=== PATIENT | male | born 1995 | race Caucasian/White ===

== ENCOUNTER → 2022-01-30 09:41 | Outpatient (CLI) | payer OTHER, SELFPAY ==
--- NOTE | ~2022-01-30 | CT_ITS ---
EXAMINATION: CT abdomen pelvis wo con EXAM DATE: 01/30/2022 10:01 INDICATION: Undescended testicle; unconfirmed . TECHNIQUE: Spiral CT of the abdomen and pelvis was performed without contrast. Axial, coronal and s agittal images of the abdomen and pelvis were reviewed. The dose-length product (DLP) for this exami nation was 712.87 mGy-cm. The exposure was tailored according to patient size (auto mA exposure cont rol), and iterative reconstruction (ASIR) was used as additional dose reduction technique. There is no prior study for comparison. FINDINGS: Scrotum was imaged. There is round left scrotal region with heterogeneous density and some peripheral calcifications measuring about 10 cm in diameter. The density inside could be scattered fo ci of soft tissue consistent with malignancy, or possibly hemorrhage within a complicated hydrocele. No morphologically normal testicle is identified which does further increase concern for malignancy. No inguinal canal soft tissue/undescended testicle identified on either side. No retroperitoneal lymp hadenopathy. The liver, spleen, adrenal glands and pancreas are unremarkable. Gallbladder is unremarkable. No bi liary obstruction. There is no nephrolithiasis or hydronephrosis. The prostate is unremarkable. T he bladder is unremarkable. There is no retroperitoneal or pelvic lymphadenopathy. There are no findings to suggest appendicitis. The stomach and small bowel are unremarkable. There is expected amount of colonic stool. No free intraperitoneal gas. The heart is normal in size. T here are no pericardial or pleural effusions. The lung bases are unremarkable. There are no osteobl astic or osteolytic lesions identified. IMPRESSION: Left scrotal enlargement, differential diagnosis including testicular malignancy and/or c omplicated hydrocele. No retroperitoneal lymphadenopathy. Correlate clinically and with ultrasound. Reviewed, dictated and finalized at location B. IMPRESSION: Left scrotal enlargement, differential diagnosis including testicul ar malignancy and/or complicated hydrocele. No retroperitoneal lymphadenopathy . Correlate clinically and with ultrasound.
== END ==
PROVIDERS: Visit Provider Urology
DX: Q53.9 Undescended testicle, unspecified (principal)
CPT/HCPCS: 74176

== ENCOUNTER 2022-02-07 11:23 | Outpatient (CLI) | payer OTHER, SELFPAY ==
[2022-02-07 12:16] LABS: Lactate Dehydrogenase 404 U/L (313-618)
[2022-02-10 15:07] LABS: HCG Tumor Marker <3 mIU/mL (<5)
[2022-02-11 16:48] LABS: Alpha Fetoprotein Tumor Marker 3.1 ng/mL (<6.1)
== END 2022-02-07 11:24 | disposition home or self-care (01) ==
LOC: ANHLAB 11:28
PROVIDERS: Visit Provider Urology
DX: Q53.9 Undescended testicle, unspecified (principal)
CPT/HCPCS: 36415; 82105; 83615; 84702

== ENCOUNTER 2022-02-24 00:06 | Day surgery (SDC) | payer OTHER, SELFPAY ==
[2022-02-20 13:39] VITALS: BMI 21.5
--- NOTE | 2022-02-20 13:47 | PC.NURSE ---
Report to the Outpatient Waiting Room, entrance under the green pavilion located off [facility], at time __1200 on date __02/24/22 . OR Time: ____2 PM____. - You and your visitor will be asked a series of questions to screen for COVID 19 for your protection. - Only one visitor is allowed at this time. - The patient visitor is requested to leave or wait in car when not with patient. - A mask is required within the hospital. Patients may have clear liquids (water, carbonated beverages, clear teas, apple juice) until 3 hours prior to surgery (1100 AM) with a maximum of 20 ounces. - No food from midnight until time of surgery - Infants may have breast milk until 4 hours before surgery, infant formula 6 hours prior to surgery. - Children will be allowed to drink immediately following surgery. If applicable, please bring a bottle or sippy cup to assist with drinking. Juice, water, soda, and popsicles are readily available. For infants on formula, please bring formula the day of surgery. Pacifiers are allowed. Take the following medications with a SIP of water the morning of surgery: N/A Medications to discontinue per physician N/A Date to take last dose Please no make-up, nail croatian, hairspray, perfume, deodorant, or body powder the day of surgery. No jewelry (including any body piercings) or valuables the day of surgery, leave them at home. Please take a shower or bath the night before, or the morning of, surgery with an antibacterial soap. Wear comfortable, loose fitting clothing. Children are encouraged to wear pajamas. - Jewelry must be removed prior to entering the operating room. Rings and piercings that are not removed may be cut off. - The hospital will not accept responsibility for valuables. - Please leave all valuables, including medications, at home the day of surgery. If you are going home after surgery, a licensed team cdl driver must drive you home. - NO public transportation without another adult. - We recommend that an adult stay with you for 24 hours following discharge. - We also recommend that you do not drive, make important decision, drink alcoholic beverages, or take any drugs that were not prescribed by your health care provider for at least 24 hours after your discharge time. For Pediatric surgeries, we recommend two adults accompany the child home (only one inside the building at this time). Follow any additional instructions given to you from your surgeon. If you or anyone in your household have experienced Covid symptoms in the past week, please notify your surgeon or the nurse liaison at the phone number below for possible testing. Telephone instructions given to ___PT and asked if any additional questions and then verbalized understanding. Patient advised to call surgeon office or pre surgery nurse liaison [phone] if any additional questions.
[2022-02-24] VITALS (8 sets, daily range): BP systolic 117–140; BP diastolic 50–99; PULSE 48–80; RESP 12–20; TEMP 36.3–37.4; O2SAT 99–100
--- NOTE | 2022-02-24 12:22 | WPDHPUPDATE1 ---
History and Physical Update Update Date/Time: 02/24/22 12:22 History and Physical has been reviewed, including an updated exam of the patient. There are NO changes in the patient's condition. Risks, benefits, and alternatives have been discussed and questions answered. Patient agrees to proceed with procedure. Proceed with left scrotal exploration with left hydrocelectomy possible left orchiectomy
[2022-02-24] MEDS: LACTATED RINGERS 1,000 ML 30 ML IV CONT (12:23)
--- NOTE | 2022-02-24 12:54 | P.PNAN_ITS ---
Anes - Initial Pre Proc Eval Procedure: Operation Date: 02/24/22 14:00 Proposed Procedures p Left Hydrocelectomy, Scrotal Exploration, - Cedrick Lanza MD s Possible Left Orchiectomy - Cedrick Lanza MD Date/Time: 02/24/22 12:54 Surgeon: Cedrick Lanza MD Pre Op Diagnosis: left hydrocele Patient Data Age: 26 Gender: M Height: 1.78 m Weight: 67 kg Last Vital Signs Temp 37.4 C 02/24/22 12:07 Pulse 48 L 02/24/22 12:07 Resp 16 02/24/22 12:07 BP 119/50 L 02/24/22 12:07 Pulse Ox 99 02/24/22 12:07 Allergies Allergy/AdvReac Type Severity Reaction Status Date / Time No Known Allergies Allergy Verified 02/24/22 11:58 Home Medications Medication Instructions Recorded Confirmed Type No Home Medications 02/20/22 02/24/22 History Patient hx anesthesia problems: none Family hx anesthesia problems: none Results Review: All pre-operative results and documents have been reviewed as part of the pre-operative evaluation. FOR[facility] Past Medical History Medical History (Updated 02/24/22 @ 12:57 by Js Mendez MD) Marijuana abuse Social History Social History Smoking status: Never smoker Alcohol intake: current Alcohol use details: STATES 1-2/MONTH Substance use: current Substance use type: marijuana Other substance usage details: DAILY Spiritual care concerns: No Anes - Eval Final PreProcedure Day of Procedure 02/24/22 12:54 Patient weight: normal Lungs: clear to auscultation Airway: Mallampati scale class II Neurological: alert and oriented Last oral intake: >/= 8 hours ASA classification: II Emergent: no Anesthetic plan: proceed Anesthesia type and monitoring: general LMA and standard monitoring Results Review: All pre-operative results and documents have been reviewed as part of the pre-operative evaluation. Informed Consent: The patient's anesthetic plan and its attendant risks and benefits were discussed with the patient/family/POA. Questions were solicited and answers provided to the satisfaction of the patient/family/POA.
[2022-02-24] MEDS: ceFAZolin 2 GM/D5W 50 ML 2 GM/50 ML BAG IVPB (13:46)
[2022-02-24] MEDS: BUPIVACAINE HCL 0.25% PF 30 ML VIAL INFILTRATE (15:02)
[2022-02-24] MEDS: NEOMYCIN/POLYMYXIN/BACITRACIN OINTMENT 15 GM TUBE 1 APPLIC TOPICAL (15:09)
--- NOTE | 2022-02-24 15:20 | P.OP_ITS ---
Procedure Note - Detailed Date of Procedure 02/24/22 Pre-op Diagnosis left hydrocele Post-op Diagnosis Same (Severely indurated left hydrocele sac with hematoma that appeared like hamburger filling the entire hydrocele sac) Procedure Performed Scrotal exploration with left orchiectomy Surgeon Cedrick Lanza MD Anesthesia General Description of Procedure Patient is taken to the operative suite and correctly identified. Once anesthesia was obtained he was prepped and draped usual sterile fashion. Vaughan sverse incision was made over the left hemiscrotum. This carried down to the tunical layers thick. The hydrocele with its contents was extremely adhered inferiorly. We were able to bluntly as well as sharply dissected free. We placed towels underneath the specimen. We incised the tunica and immediately dark blood came out. As we opened the tunica and hydrocele sac further was obvious that it was filled with material that appeared to look like hamburger at this time. It encompassed the entire contents. Given these findings along with the lack of visibility of testicle on ultrasound and CT we decided to proceed with an orchiectomy. Joaquin drain was placed around the cord proximally. We then isolated the cord and secured using right angles and PMNs. The cord was transected we then ligated the proximal cord using 1-0 Prolene. We left slightly longer tail. It then was buried up in the internal ring. Hemostasis was achieved using electrocautery as well as some ties long some more prominent vessels. Quarter-inch Margaret drain was then placed through a separate stab incision and secured using 3-0 chromic. Tunica was closed using 2-0 Vicryl in a running fashion. Skin was closed using 3-0 chromic in a running fashion. We anesthetized the skin with 0.25% Marcaine. Patient was taken recovery stable condition. Estimated Blood Loss 25 Drains Yes Packing No Pathology Yes Complications No immediate complications Condition Stable Disposition PACU
[2022-02-24] MEDS: fentaNYL CITRATE INJ (*CRX) 100 MCG/2 ML VIAL 25 MCG IV PUSH ×4 (15:30→15:45)
[2022-02-24] MEDS: oxyCODONE HCL (*CRX) 5 MG TAB IR PO (16:30)
== END 2022-02-24 17:40 | disposition home or self-care (01) ==
PROVIDERS: Visit Provider Urology
PROC: (CPT 55040; principal; 2022-02-24 14:00)
PROC: (CPT 54520; 2022-02-24 14:00)
DX: N43.3 Hydrocele, unspecified (principal); N44.8 Other noninflammatory disorders of the testis; F12.10 Cannabis abuse, uncomplicated
CPT/HCPCS: 54520; 88305; 88307; 88329; A9270; J0690; J1100; J1885; J2250; J2405; J2704; J3010; J7120